=== PATIENT | female | born 2000 | race Caucasian/White ===

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

== ENCOUNTER → 2019-05-15 | Outpatient (CLI) | payer BC | LOC: COL.RAD 08:15 | DX: M77.9 Enthesopathy, unspecified (principal) ==

== ENCOUNTER 2021-04-16 16:22 | Emergency (ER) | payer BC ==
[~2021-04-16] VITALS: Ht 180.3 cm; Wt 63.6 kg
[2021-04-16] MEDS ORDERED: PREDNISONE20 MG PO (19:12)
[2021-04-16 19:25] VITALS: BP 117/73; PULSE 100; TEMP 98.1
== END 2021-04-16 19:36 | disposition home or self-care (01) ==
LOC: COL.ER 16:22
DX: J45.901 Unspecified asthma with (acute) exacerbation (principal)
CPT/HCPCS: J7512

== ENCOUNTER → 2021-09-21 | Outpatient (CLI) | payer BC ==
[~2021-09-21] MED LIST: PREDNISONE20 MG PO
== END ==
LOC: COL.RAD 10:30
DX: R10.13 Epigastric pain (principal); J45.909 Unspecified asthma, uncomplicated